=== PATIENT | female | born 2000 | race Caucasian/White ===

== ENCOUNTER 2022-08-06 01:12 | Emergency (ER) | payer BC ==
[~2022-08-06] VITALS: Ht 162.6 cm; Wt 53.5 kg
--- NOTE | 2022-08-06 01:40 | NUR ---
Dr. George evaluated patient at bedside. MSE in progress.
[2022-08-06 01:53] LABS: HEMATOCRIT 42.3 % (31.2-41.9); MEAN CORPUSCULAR HEMOGLOBIN 29.1 uug (24.7-32.8); MEAN CORPUSCULAR VOLUME 86.5 fL (75.5-95.3); PLATELET COUNT (AUTO) 342 K/uL (179-408)
[2022-08-06 01:55] LABS: *BILIRUBIN,URIN NEGATIVE (NEGATIVE); *BLOOD, URINE NEGATIVE (NEGATIVE); *CLARITY,URINE CLEAR (CLEAR); *COLOR,URINE YELLOW (YELLOW); *KETONES,URINE NEGATIVE (NEGATIVE); *UROBILINOGEN,URINE 0.2 E.U./dl (NORMAL); LEUKOCYTE ESTERASE ,URINE TRACE (NEGATIVE); NITRITE, URINE NEGATIVE (NEGATIVE); PH,URINE 8.5 (5.0-8.0); UGLUCOSE NEGATIVE (NEGATIVE)
[2022-08-06 01:57] LABS: BACTERIA,URINE FEW /HPF (NONE SEEN); RBC,URINE 0-3 /HPF (0-3); SQUAMOUS EPITHELIAL CELL,UR FEW /HPF (NONE SEEN)
[2022-08-06 02:05] LABS: CREATININE 0.7 mg/dL (0.6-1.3); POTASSIUM 3.7 mmol/L (3.5-5.1)
[2022-08-06 02:11] LABS: BILIRUBIN,DIRECT 0.1 mg/dL (0.0-0.2); BILIRUBIN,TOTAL 0.5 mg/dL (0.2-1.0); TOTAL PROTEIN, SERUM 7.6 g/dL (6.4-8.2)
[2022-08-06] MEDS ORDERED: PHENAZOPYRIDINE HCL 100 MG TABLET ONE (02:58)
[2022-08-06] MEDS ORDERED: SULFAMETH/TRIMETH 800/160 MG TABLET ONE (02:59)
[2022-08-06] MEDS ORDERED: PHENAZOPYRIDINE HCL 100 MG TABLET PO ONE (03:00)
[2022-08-06] MEDS ORDERED: SULFAMETH/TRIMETH 800/160 MG TABLET PO ONE (03:00)
[2022-08-06] MEDS ORDERED: PHEN-704 PO (03:01)
[2022-08-06] MEDS ORDERED: SULF1TAB48 PO (03:01)
[2022-08-06] MEDS ORDERED: BLOO-1730 MC (03:01)
[2022-08-06 03:10] VITALS: BP 110/75
--- NOTE | 2022-08-06 03:10 | NUR ---
Patient discharged to home in stable condition. Written and verbal after care instructions given. Patient verbalizes understanding of instructions. Stressed follow up or return to ER for worsening s/s.
== END 2022-08-06 03:11 | disposition home or self-care (01) ==
LOC: ER 01:23
DX: N30.90 Cystitis, unspecified without hematuria (principal); Z79.899 Other long term (current) drug therapy
CPT/HCPCS: 36415; 85025; A4663